=== PATIENT | female | born 1975 | race African-American/Black ===

== ENCOUNTER → 2024-11-16 10:06 | Outpatient (REF) | payer BC, SELFPAY | LOC: RAD 10:06 | PROVIDERS: ATTENDING PHYSICIAN Student in an Organized Health Care Education/Training Program; FAMILY PHYSICIAN Internal Medicine | DX: M25.541 Pain in joints of right hand (principal); M25.542 Pain in joints of left hand; M79.671 Pain in right foot; M79.672 Pain in left foot; M25.569 Pain in unspecified knee; M25.559 Pain in unspecified hip; M75.01 Adhesive capsulitis of right shoulder; M06.89 Other specified rheumatoid arthritis, multiple sites; M70.61 Trochanteric bursitis, right hip | CPT/HCPCS: 72100; 72202; 73030; 73130; 73522; 73560; 73565; 73630; 76882 ==

== ENCOUNTER → 2025-01-26 07:04 | Outpatient (REF) | payer BC, SELFPAY | LOC: PAVMRI 07:04 | PROVIDERS: ATTENDING PHYSICIAN Student in an Organized Health Care Education/Training Program; FAMILY PHYSICIAN Internal Medicine | DX: D16.31 Benign neoplasm of short bones of right lower limb (principal) | CPT/HCPCS: 73721 ==